=== PATIENT | female | born 1985 | race African-American/Black ===

== ENCOUNTER 2018-05-28 11:58 | Inpatient (IN) ==
[2018-05-28] MEDS ORDERED: DINOPROSTONE VAG GEL 10 MG SYRINGE VAG ONE ×2 (12:33→13:38)
[2018-05-28] MEDS: LACTATED RINGERS 1,000 ML IV SCH ×2 (13:11→20:44)
[2018-05-28] MEDS ORDERED: ONDANSETRON 4 MG/2 ML VIAL IV PRN ×2 (13:28→22:10)
[2018-05-28 14:07] LABS: Basophils % 0.3 % (0.0-0.8); Eosinophils # 0.1 10*3/uL (0.0-0.87); Eosinophils % 0.9 % (0.00-10.9); Hematocrit 35.3 VOL% (35.7-47.0); Hemoglobin 10.8 GM/DL (12.0-16.0); Immature Granulocytes % 0.5 %; Immature Granulocytes Absolute 0.06 #; Lymphocytes # 2.9 10*3/uL (1.4-4.0); Lymphocytes % 22.3 % (21.3-54.2); Mean Corpuscular HGB Conc 30.6 GM/DL (32-36); Mean Corpuscular Hemoglobin 24 PG (27-34); Mean Corpuscular Volume 76.7 FL (87-102); Mean Platelet Volume 10.4 FL (9.6-12.0); Monocytes % 7.5 % (1.7-12.7); Neutrophils # 8.8 10*3/uL (1.4-7.4); Neutrophils % 68.5 % (38.7-73.9); Platelet Count 326 T/CUMM (130-400); Red Cell Distribution Width 15.3 % (9.3-17.3); White Blood Count 12.9 T/CUMM (4-12)
[2018-05-28 14:34] LABS: Albumin 2.6 G/DL (3.4-5.0); Calcium 9.3 MG/DL (8.5-10.1); Osmolality,Calculated 273.5 MOS/KG (273-304); Potassium 3.6 MMOL/L (3.5-5.1); Total Protein 7.3 G/DL (6.4-8.3); Uric Acid 4.2 MG/DL (2.6-6.0)
[2018-05-28] MEDS: hydrALAZINE 20 MG/1 ML VIAL IV SCH ×2 (14:34→15:05)
[2018-05-28 16:14] LABS: INR 0.8; PT Patient Result 9.2 SECS; Partial Thromboplastin Time 27.5 SECS (0-40)
[2018-05-28] MEDS ORDERED: OXYTOCIN/LR 20 UNIT/1,000 ML BAG IV SCH (19:30)
[2018-05-28] MEDS ORDERED: FAMOTIDINE 20 MG/2 ML VIAL IV ONE (20:24)
[2018-05-28] MEDS ORDERED: CITRIC ACID/SODIUM CITRATE 30 ML UDCUP PO ONE ×2 (20:24→20:41)
[2018-05-28] MEDS ORDERED: ceFAZolin 3,000 MG in SYRINGE 1 EACH IV ONE (20:41)
[2018-05-28] MEDS ORDERED: OXYTOCIN 10 UNIT/ML VIAL IM ONE ×2 (20:42→21:00)
[2018-05-28] MEDS ORDERED: LABETALOL 200 MG TABLET PO SCH (21:00)
[2018-05-28] MEDS ORDERED: OXYTOCIN/LR 30 UNIT/1,000 ML BAG IV ONE (21:00)
[2018-05-28 21:42] LABS: Apearance,Urine CLEAR (Clear); Bilirubin,Urine Negative (Negative); Blood, Urine Negative (Negative); Glucose,Urine (UA) Negative (Negative); Ketones,Urine 5 mg/dL (Negative); Mucus,Urine Moderate /LPF (Occasional); Nitrite,Urine Negative (Negative); Protein,Urine Negative; RBC,Urine 2 /HPF (0-4); Squamous Epithelial Cell,Urine Occasional /HPF (0-10); Urine Color Yellow (Yellow); Urine Specific Gravity 1.025 (1.001-1.035); Urine Urobilinogen < 2.0 EU/DL (0.2-1.0); WBC,Urine 1 /HPF (0-6)
[2018-05-28 21:52] LABS: Cord Arterial Blood HCO3 20.8 MMOL/L
[2018-05-28 21:53] LABS: Cord Venous Blood HCO3 26.3 MMOL/L; Cord Venous Blood PCO2 50.5 MMHG
[2018-05-28 21:54] LABS: Cord Venous Blood PO2 19.5 MMHG
[2018-05-28] MEDS ORDERED: OXYTOCIN/LR 20 UNIT/1,000 ML BAG IV ONE (22:10)
[2018-05-28] MEDS ORDERED: SIMETHICONE CHEW 80 MG TABLET PO PRN (22:10)
[2018-05-28] MEDS ORDERED: ACETAMINOPHEN 325 MG TABLET PO PRN (22:10)
[2018-05-28] MEDS ORDERED: RHO(D) IMMUNE GLOBULIN 300 MCG SYRINGE IM ONE (22:10)
[2018-05-28] MEDS ORDERED: fentaNYL 100 MCG/2 ML VIAL ONE (22:14)
[2018-05-28] MEDS ORDERED: MORPHINE 10 MG/10 ML VIAL ONE (22:14)
[2018-05-28] MEDS ORDERED: PHENYLEPHRINE 1 MG/10 ML SYRINGE IV ONE ×2 (22:15→22:16)
[2018-05-28] MEDS ORDERED: BUPIVACAINE SPINAL 0.75% 2 ML AMP SPINAL ONE (22:16)
[2018-05-29] MEDS ORDERED: diphenhydrAMINE 50 MG/1 ML VIAL IV PRN (00:06)
[2018-05-29] MEDS ORDERED: hydrOXYzine HCL 25 MG/1 ML VIAL IM PRN (00:06)
[2018-05-29] MEDS ORDERED: HYDROmorphone 2 MG/1 ML VIAL IV PRN (00:06)
[2018-05-29] MEDS ORDERED: OXYTOCIN/LR 20 UNIT/1,000 ML BAG IV SCH (06:00)
[2018-05-29 06:39] LABS: Basophils # 0.1 10*3/uL (0.0-0.2); Basophils % 0.4 % (0.0-0.8); Eosinophils # 0.1 10*3/uL (0.0-0.87); Eosinophils % 0.6 % (0.00-10.9); Hematocrit 31.3 VOL% (35.7-47.0); Hemoglobin 9.8 GM/DL (12.0-16.0); Immature Granulocytes % 0.7 %; Immature Granulocytes Absolute 0.11 #; Lymphocytes # 2.9 10*3/uL (1.4-4.0); Lymphocytes % 18.1 % (21.3-54.2); Mean Corpuscular HGB Conc 31.3 GM/DL (32-36); Mean Corpuscular Hemoglobin 24 PG (27-34); Mean Corpuscular Volume 76.5 FL (87-102); Mean Platelet Volume 10.1 FL (9.6-12.0); Monocytes # 1.5 10*3/uL (0.11-0.8); Monocytes % 9.3 % (1.7-12.7); Neutrophils # 11.5 10*3/uL (1.4-7.4); Neutrophils % 70.9 % (38.7-73.9); Platelet Count 294 T/CUMM (130-400); Red Blood Count 4.09 MC/CUMM (3.8-5.5); Red Cell Distribution Width 15.2 % (9.3-17.3); White Blood Count 16.1 T/CUMM (4-12)
[2018-05-29] MEDS: LACTATED RINGERS 1,000 ML IV SCH ×2 (07:33)
[2018-05-29] MEDS ORDERED: METOCLOPRAMIDE 10 MG TABLET PO PRN (08:53)
[2018-05-29] MEDS: MAGNESIUM HYDROXIDE SUSP 30 ML UDCUP PO PRN ×2 (09:00→20:15)
[2018-05-29] MEDS: MULTIVITAMIN (PRENATAL) TABLET PO SCH (09:00)
[2018-05-29] MEDS: DOCUSATE SODIUM 100 MG CAPSULE PO SCH ×2 (09:01→20:15)
[2018-05-29] MEDS: IBUPROFEN 800 MG TABLET PO PRN ×2 (09:01→18:42)
[2018-05-29 12:07] LABS: Basophils # 0.1 10*3/uL (0.0-0.2); Basophils % 0.3 % (0.0-0.8); Eosinophils # 0.1 10*3/uL (0.0-0.87); Eosinophils % 0.6 % (0.00-10.9); Hemoglobin 10.3 GM/DL (12.0-16.0); Immature Granulocytes % 0.6 %; Immature Granulocytes Absolute 0.11 #; Lymphocytes # 2.4 10*3/uL (1.4-4.0); Lymphocytes % 13.6 % (21.3-54.2); Mean Corpuscular HGB Conc 31.2 GM/DL (32-36); Mean Corpuscular Hemoglobin 24 PG (27-34); Mean Platelet Volume 9.4 FL (9.6-12.0); Monocytes # 1.7 10*3/uL (0.11-0.8); Monocytes % 9.5 % (1.7-12.7); Neutrophils # 13.2 10*3/uL (1.4-7.4); Neutrophils % 75.4 % (38.7-73.9); Platelet Count 294 T/CUMM (130-400); Red Blood Count 4.34 MC/CUMM (3.8-5.5); Red Cell Distribution Width 15.2 % (9.3-17.3); White Blood Count 17.5 T/CUMM (4-12)
[2018-05-29] MEDS: METOCLOPRAMIDE 10 MG TABLET PO SCH ×2 (14:52→20:15)
[2018-05-29] MEDS ORDERED: HYDROCORTISONE 2.5% RECTAL CREAM 30 GM TUBE TOP PRN (19:38)
[2018-05-29] MEDS ORDERED: WITCH HAZEL PADS 100/JAR TOP PRN (19:38)
[2018-05-29] MEDS ORDERED: BISACODYL 10 MG SUPP RECTAL PRN (19:38)
[2018-05-30] MEDS: METOCLOPRAMIDE 10 MG TABLET PO SCH (03:56)
[2018-05-30] MEDS: DOCUSATE SODIUM 100 MG CAPSULE PO SCH ×2 (08:36→20:45)
[2018-05-30] MEDS: MULTIVITAMIN (PRENATAL) TABLET PO SCH (08:36)
[2018-05-30] MEDS: IBUPROFEN 800 MG TABLET PO PRN ×2 (08:38→17:08)
[2018-05-31 08:15] VITALS: BP 124/76
[2018-05-31] MEDS ORDERED: INFLUENZA VIRUS VACCINE 0.5 ML SYRINGE IM ONE ×2 (09:00→10:30)
[2018-05-31] MEDS: MULTIVITAMIN (PRENATAL) TABLET PO SCH (09:12)
[2018-05-31] MEDS: DOCUSATE SODIUM 100 MG CAPSULE PO SCH (09:12)
[2018-05-31] MEDS ORDERED: DIPH/TET/ACEL PERT BOOSTER VACCINE 0.5 ML VIAL IM ONE (10:07)
== END 2018-05-31 12:10 | disposition home or self-care (01) | DRG 540 ==
LOC: N.OBOUT 11:58 → N.LD 12:11 → N.OB 05-29 01:30
PROVIDERS: ADMIT Obstetrics & Gynecology; ATTEND Obstetrics & Gynecology
PROC: LDCSECT (ICD-10-PCS; 2018-05-28 21:00)